=== PATIENT | female | born 1995 | race Caucasian/White ===

== ENCOUNTER 2023-02-24 07:17 | Inpatient (IN) ==
[2023-02-24] MEDS ORDERED: SODIUM CHLORIDE 0.9% 1,000 ML IV ONE ×3 (07:28→10:04)
--- NOTE | 2023-02-24 07:43 | Emergency Department Note ---
History of Present Illness General Chief complaint: Respiratory Problems Stated complaint: +COVID,29 WEEKS PREG,HARD TO BREATHE Time Seen by Provider: 02/24/23 07:25 History of Present Illness Maximum Pain Intensity: 7 27-year-old female who is 29 weeks presents to the emergency department for evaluation of COVID-positive with fever, chills, nausea, shortness of breath. Patient states around 1 PM yesterday she developed a sore throat and runny nose. When she got home from work she took a COVID test which was positive. She states as the night went on her symptoms got progressively worse when she developed fever/chills, nausea and shortness of breath with exertion. She notes feeling short of breath with talking and walking, not at rest. She did have an episode of chest pain across her ribs that lasted a few hours but this has since improved. She states around 6 AM this morning she started to get intermittent pain in her back and hips every few minutes and is concerned for having contractions. She states they occur every 3 minutes but do not last very long and have not gotten closer in frequency. She denies any vaginal bleeding or discharge. She is feeling the baby move. She denies any headaches, dizziness/lightheadedness, visual changes, abdominal pain, diarrhea/constipation, urinary symptoms. She reports that the thus far has been healthy without any complications. She was seen by her OB (Nandini) on Tuesday and was told she was anemic and will need iron transfusions as well as failed her glucose test. She denies any history of blood clots, or recent lower extremity swelling or calf pain. She took Tylenol last evening and Zofran on the way to the emergency department this morning for nausea. Denies any other significant past medical history. Home Medications Medication Instructions Recorded Confirmed Type cetirizine 10 mg tablet (Zyrtec) 10 mg PO QAM 01/07/23 02/24/23 History sertraline 50 mg tablet (Zoloft) 50 mg PO QAM 01/07/23 02/24/23 History ondansetron 4 mg disintegrating 4 mg translingual Q8H PRN 02/24/23 02/24/23 History tablet nausea/vomiting prenat.vits,zayda,cuz-izsl-dorea 1 tab PO DAILY 02/24/23 02/24/23 History Allergies Allergy/AdvReac Type Severity Reaction Status Date / Time No Known Allergies Allergy Unverified 01/07/23 16:04 Past Med/Surg History Medical History Depression COVID-19 Hypotension Tachycardia 29 weeks gestation of Social History Smoking Status: Never smoker Preferred Language: [place] Feels Safe at Home: Yes Physical Exam Vital Signs Vital Signs - 24 hr 02/24/23 07:18 02/24/23 07:18 02/24/23 07:22 Temperature 37.4 C Temperature Source Temporal Artery Scan Pulse Rate 167 H Pulse Rate [Apical] Pulse Rate from SpO2 Sensor Pulse Rhythm [Apical] Pulse Strength [Apical] Respiratory Rate 18 Respiratory Effort / Characteristics Spontaneous Non-Labored Spontaneous Respiratory Depth Normal Normal Respiratory Pattern Regular Blood Pressure 105/49 L Blood Pressure [Right Arm] Blood Pressure Mean 67 Blood Pressure Mean [Right Arm] Blood Pressure Position Sitting Blood Pressure Position [Right Arm] Pulse Oximetry 99 100 Oxygen Delivery Method Room Air Room Air Room Air Sepsis Recent Fever Within 48 Hours No Sepsis New/Unexplained Change in Mental Status No Sepsis Action Taken by Nursing No Action Required 02/24/23 07:35 02/24/23 07:35 02/24/23 07:35 Temperature Temperature Source Pulse Rate Pulse Rate [Apical] 154 H Pulse Rate from SpO2 Sensor Pulse Rhythm [Apical] Regular Pulse Strength [Apical] Normal Respiratory Rate 22 Respiratory Effort / Characteristics Non-Labored Spontaneous Respiratory Depth Normal Respiratory Pattern Regular Blood Pressure 109/73 Blood Pressure [Right Arm] 109/69 Blood Pressure Mean 80 Blood Pressure Mean [Right Arm] 82 Blood Pressure Position Blood Pressure Position [Right Arm] Sitting Pulse Oximetry 99 100 Oxygen Delivery Method Room Air Sepsis Recent Fever Within 48 Hours Sepsis New/Unexplained Change in Mental Status Sepsis Action Taken by Nursing 02/24/23 07:44 02/24/23 07:45 02/24/23 07:45 Temperature Temperature Source Pulse Rate 160 H Pulse Rate [Apical] 162 H Pulse Rate from SpO2 Sensor 160 H Pulse Rhythm [Apical] Regular Pulse Strength [Apical] Normal Respiratory Rate 22 23 Respiratory Effort / Characteristics Respiratory Depth Respiratory Pattern Blood Pressure Blood Pressure [Right Arm] 97/66 L Blood Pressure Mean Blood Pressure Mean [Right Arm] 76 Blood Pressure Position Blood Pressure Position [Right Arm] Sitting Pulse Oximetry 100 100 100 Oxygen Delivery Method Room Air Sepsis Recent Fever Within 48 Hours Sepsis New/Unexplained Change in Mental Status Sepsis Action Taken by Nursing 02/24/23 07:56 02/24/23 07:56 02/24/23 08:03 Temperature Temperature Source Pulse Rate 134 H Pulse Rate [Apical] Pulse Rate from SpO2 Sensor 132 H Pulse Rhythm [Apical] Pulse Strength [Apical] Respiratory Rate 26 H Respiratory Effort / Characteristics Respiratory Depth Respiratory Pattern Blood Pressure 106/59 L 99/67 L 100/63 Blood Pressure [Right Arm] Blood Pressure Mean 84 77 67 Blood Pressure Mean [Right Arm] Blood Pressure Position Blood Pressure Position [Right Arm] Pulse Oximetry 100 Oxygen Delivery Method Sepsis Recent Fever Within 48 Hours Sepsis New/Unexplained Change in Mental Status Sepsis Action Taken by Nursing 02/24/23 08:03 02/24/23 08:10 02/24/23 08:15 Temperature Temperature Source Pulse Rate 160 H 136 H Pulse Rate [Apical] 144 H Pulse Rate from SpO2 Sensor 157 H Pulse Rhythm [Apical] Regular Pulse Strength [Apical] Normal Respiratory Rate 20 22 Respiratory Effort / Characteristics Respiratory Depth Respiratory Pattern Blood Pressure Blood Pressure [Right Arm] 106/69 Blood Pressure Mean Blood Pressure Mean [Right Arm] 81 Blood Pressure Position Blood Pressure Position [Right Arm] Pulse Oximetry 99 100 Oxygen Delivery Method Room Air Sepsis Recent Fever Within 48 Hours Sepsis New/Unexplained Change in Mental Status Sepsis Action Taken by Nursing 02/24/23 08:15 02/24/23 08:30 02/24/23 08:30 Temperature Temperature Source Pulse Rate 134 H 136 H Pulse Rate [Apical] Pulse Rate from SpO2 Sensor 136 H 135 H Pulse Rhythm [Apical] Pulse Strength [Apical] Respiratory Rate 21 22 Respiratory Effort / Characteristics Respiratory Depth Respiratory Pattern Blood Pressure 95/48 L Blood Pressure [Right Arm] Blood Pressure Mean 71 Blood Pressure Mean [Right Arm] Blood Pressure Position Blood Pressure Position [Right Arm] Pulse Oximetry 98 99 Oxygen Delivery Method Sepsis Recent Fever Within 48 Hours Sepsis New/Unexplained Change in Mental Status Sepsis Action Taken by Nursing 02/24/23 08:37 02/24/23 08:37 02/24/23 08:45 Temperature Temperature Source Pulse Rate 140 H Pulse Rate [Apical] Pulse Rate from SpO2 Sensor 141 H Pulse Rhythm [Apical] Pulse Strength [Apical] Respiratory Rate 22 Respiratory Effort / Characteristics Respiratory Depth Respiratory Pattern Blood Pressure 97/52 L 101/50 L Blood Pressure [Right Arm] Blood Pressure Mean 61 61 Blood Pressure Mean [Right Arm] Blood Pressure Position Blood Pressure Position [Right Arm] Pulse Oximetry 99 Oxygen Delivery Method Sepsis Recent Fever Within 48 Hours Sepsis New/Unexplained Change in Mental Status Sepsis Action Taken by Nursing 02/24/23 08:45 02/24/23 09:00 02/24/23 09:00 Temperature Temperature Source Pulse Rate 135 H 132 H Pulse Rate [Apical] Pulse Rate from SpO2 Sensor 137 H 133 H Pulse Rhythm [Apical] Pulse Strength [Apical] Respiratory Rate 21 20 Respiratory Effort / Characteristics Respiratory Depth Respiratory Pattern Blood Pressure 96/54 L Blood Pressure [Right Arm] Blood Pressure Mean 77 Blood Pressure Mean [Right Arm] Blood Pressure Position Blood Pressure Position [Right Arm] Pulse Oximetry 97 97 Oxygen Delivery Method Sepsis Recent Fever Within 48 Hours Sepsis New/Unexplained Change in Mental Status Sepsis Action Taken by Nursing 02/24/23 09:15 02/24/23 09:15 02/24/23 09:28 Temperature Temperature Source Pulse Rate 131 H Pulse Rate [Apical] Pulse Rate from SpO2 Sensor 130 H Pulse Rhythm [Apical] Pulse Strength [Apical] Respiratory Rate 24 Respiratory Effort / Characteristics Respiratory Depth Respiratory Pattern Blood Pressure 83/65 L 91/53 L Blood Pressure [Right Arm] Blood Pressure Mean 70 71 Blood Pressure Mean [Right Arm] Blood Pressure Position Blood Pressure Position [Right Arm] Pulse Oximetry 97 Oxygen Delivery Method Sepsis Recent Fever Within 48 Hours Sepsis New/Unexplained Change in Mental Status Sepsis Action Taken by Nursing 02/24/23 09:28 02/24/23 09:30 02/24/23 09:30 Temperature Temperature Source Pulse Rate 134 H 132 H Pulse Rate [Apical] Pulse Rate from SpO2 Sensor 133 H 134 H Pulse Rhythm [Apical] Pulse Strength [Apical] Respiratory Rate 29 H 20 Respiratory Effort / Characteristics Respiratory Depth Respiratory Pattern Blood Pressure 85/48 L Blood Pressure [Right Arm] Blood Pressure Mean 59 Blood Pressure Mean [Right Arm] Blood Pressure Position Blood Pressure Position [Right Arm] Pulse Oximetry 97 95 Oxygen Delivery Method Sepsis Recent Fever Within 48 Hours Sepsis New/Unexplained Change in Mental Status Sepsis Action Taken by Nursing 02/24/23 09:45 02/24/23 09:45 02/24/23 10:00 Temperature Temperature Source Pulse Rate 133 H Pulse Rate [Apical] Pulse Rate from SpO2 Sensor 132 H Pulse Rhythm [Apical] Pulse Strength [Apical] Respiratory Rate 18 Respiratory Effort / Characteristics Respiratory Depth Respiratory Pattern Blood Pressure 90/45 L 86/50 L Blood Pressure [Right Arm] Blood Pressure Mean 61 63 Blood Pressure Mean [Right Arm] Blood Pressure Position Blood Pressure Position [Right Arm] Pulse Oximetry 98 Oxygen Delivery Method Sepsis Recent Fever Within 48 Hours Sepsis New/Unexplained Change in Mental Status Sepsis Action Taken by Nursing 02/24/23 10:00 02/24/23 10:11 02/24/23 10:11 Temperature Temperature Source Pulse Rate 123 H 125 H Pulse Rate [Apical] Pulse Rate from SpO2 Sensor 123 H 125 H Pulse Rhythm [Apical] Pulse Strength [Apical] Respiratory Rate 21 23 Respiratory Effort / Characteristics Respiratory Depth Respiratory Pattern Blood Pressure 99/59 L Blood Pressure [Right Arm] Blood Pressure Mean 68 Blood Pressure Mean [Right Arm] Blood Pressure Position Blood Pressure Position [Right Arm] Pulse Oximetry 97 98 Oxygen Delivery Method Sepsis Recent Fever Within 48 Hours Sepsis New/Unexplained Change in Mental Status Sepsis Action Taken by Nursing 02/24/23 10:15 02/24/23 10:15 02/24/23 10:30 Temperature Temperature Source Pulse Rate 113 H Pulse Rate [Apical] Pulse Rate from SpO2 Sensor 120 H Pulse Rhythm [Apical] Pulse Strength [Apical] Respiratory Rate 20 Respiratory Effort / Characteristics Respiratory Depth Respiratory Pattern Blood Pressure 95/69 L 95/52 L Blood Pressure [Right Arm] Blood Pressure Mean 76 69 Blood Pressure Mean [Right Arm] Blood Pressure Position Blood Pressure Position [Right Arm] Pulse Oximetry 97 Oxygen Delivery Method Sepsis Recent Fever Within 48 Hours Sepsis New/Unexplained Change in Mental Status Sepsis Action Taken by Nursing 02/24/23 10:30 02/24/23 10:45 02/24/23 10:45 Temperature Temperature Source Pulse Rate 125 H 127 H Pulse Rate [Apical] Pulse Rate from SpO2 Sensor 123 H 122 H Pulse Rhythm [Apical] Pulse Strength [Apical] Respiratory Rate 19 23 Respiratory Effort / Characteristics Respiratory Depth Respiratory Pattern Blood Pressure 93/51 L Blood Pressure [Right Arm] Blood Pressure Mean 63 Blood Pressure Mean [Right Arm] Blood Pressure Position Blood Pressure Position [Right Arm] Pulse Oximetry 100 98 Oxygen Delivery Method Sepsis Recent Fever Within 48 Hours Sepsis New/Unexplained Change in Mental Status Sepsis Action Taken by Nursing 02/24/23 11:00 02/24/23 11:00 02/24/23 12:02 Temperature Temperature Source Pulse Rate 117 H 132 H Pulse Rate [Apical] Pulse Rate from SpO2 Sensor 122 H Pulse Rhythm [Apical] Pulse Strength [Apical] Respiratory Rate 31 H 25 H Respiratory Effort / Characteristics Respiratory Depth Respiratory Pattern Blood Pressure 100/59 L 107/61 Blood Pressure [Right Arm] Blood Pressure Mean 70 76 Blood Pressure Mean [Right Arm] Blood Pressure Position Blood Pressure Position [Right Arm] Pulse Oximetry 100 100 Oxygen Delivery Method Room Air Sepsis Recent Fever Within 48 Hours Sepsis New/Unexplained Change in Mental Status Sepsis Action Taken by Nursing 02/24/23 12:15 02/24/23 12:45 02/24/23 12:53 Temperature Temperature Source Pulse Rate 120 H 144 H 131 H Pulse Rate [Apical] Pulse Rate from SpO2 Sensor 144 H Pulse Rhythm [Apical] Pulse Strength [Apical] Respiratory Rate 22 25 H Respiratory Effort / Characteristics Respiratory Depth Respiratory Pattern Blood Pressure 96/53 L 99/62 L Blood Pressure [Right Arm] Blood Pressure Mean 67 74 Blood Pressure Mean [Right Arm] Blood Pressure Position Blood Pressure Position [Right Arm] Pulse Oximetry 98 99 Oxygen Delivery Method Room Air Room Air Sepsis Recent Fever Within 48 Hours Sepsis New/Unexplained Change in Mental Status Sepsis Action Taken by Nursing 02/24/23 13:00 02/24/23 13:15 02/24/23 13:30 Temperature Temperature Source Pulse Rate 142 H 143 H 135 H Pulse Rate [Apical] Pulse Rate from SpO2 Sensor Pulse Rhythm [Apical] Pulse Strength [Apical] Respiratory Rate 28 H 24 29 H Respiratory Effort / Characteristics Respiratory Depth Respiratory Pattern Blood Pressure 99/58 L 101/55 L 106/76 Blood Pressure [Right Arm] Blood Pressure Mean 71 70 86 Blood Pressure Mean [Right Arm] Blood Pressure Position Blood Pressure Position [Right Arm] Pulse Oximetry 98 97 99 Oxygen Delivery Method Room Air Room Air Room Air Sepsis Recent Fever Within 48 Hours Sepsis New/Unexplained Change in Mental Status Sepsis Action Taken by Nursing 02/24/23 13:45 Temperature Temperature Source Pulse Rate 137 H Pulse Rate [Apical] Pulse Rate from SpO2 Sensor Pulse Rhythm [Apical] Pulse Strength [Apical] Respiratory Rate 27 H Respiratory Effort / Characteristics Respiratory Depth Respiratory Pattern Blood Pressure 105/63 Blood Pressure [Right Arm] Blood Pressure Mean 77 Blood Pressure Mean [Right Arm] Blood Pressure Position Blood Pressure Position [Right Arm] Pulse Oximetry 99 Oxygen Delivery Method Room Air Sepsis Recent Fever Within 48 Hours Sepsis New/Unexplained Change in Mental Status Sepsis Action Taken by Nursing Constitutional: alert and oriented x3. no acute distress. Dyspneic HEENT: normocephalic, atraumatic. normal conjunctiva.PERRLA. EOM's grossly intact. TMs pearly rivas without effusion. Oropharynx patent, erythematous. Tonsils nonenlarged without exudate. Mucus membranes moist Neck: neck is supple, nontender. Respiratory: lungs are clear to auscultation without wheezes, rhonchi, or rales bilaterally. equal chest rise. normal respiratory effort, no accessory muscle use. Cardiovascular: normal heart sounds without murmur. Tachycardic with regular rhythm GI: abdomen is soft, nontender. No palpable masses. No rebound tenderness or guarding. No CVA tenderness MSK: Moves all 4 extremities spontaneously Peripheral vascular: extremities warm and well perfused with palpable pulses. Neuro: without focal neuro deficits. CNII-XII intact. Speech clear, tongue midline, without facial droop. Strength equal throughout all for extremities. Psych:appropriate mood and affect. Course Course 0726: Patient was seen and evaluated in room A11. History and physical exam was performed and IV access was established and labs and imaging were obtained. She was placed on environmental monitoring technician at time my interpretation demonstrates sinus tachycardia at a rate of 150 bpm. Vital signs demonstrate mildly hypotensive at 105/49. Afebrile. Patient was hydrated with 2 L of IV fluids and medicated with Tylenol 0802: Discussed with emergency response technician Dr. Kerrie FERNANDEZ. Will be down to perform NST given concerns for contractions 0850: Upon reassessment, patient notes feeling moderately better. Vital signs stable, heart rate mildly improved. OB at bedside performing NST. Labs demonstrate no leukocytosis. Mild acute anemia hemoglobin of 10.9 (decreased from 12 on 01/07/2023). CMP without significant electrolyte abnormalities. Sodium 135. Potassium 3.3. Renal function within normal limits. LFTs and lipase unremarkable. High-sensitivity troponin nonactionable. EKG per my interpretation demonstrates sinus tachycardia at a rate of 153 bpm without evidence of ischemic changes. Urinalysis with +3 ketones, negative for infection or blood. CXR unremarkable. COVID/flu/RSV testing pending. 0930: NST within normal limits per OB. No evidence for contractions/labor. Patient continues to feel symptomatically better. She is persistently tachycardic and borderline hypotensive despite 2 L of fluids. Cannot entirely rule out PE with risk factors of and COVID +, however, lower on the differential at this time as her vital signs can be easily explained by a COVID infection. She does not appear septic. We discussed admission to the hospital for continued observation and hydration. Patient agreeable to plan. 0943: Discussed with hospitalist HUA, Nargis Grayson, who recommended additional liter of fluids, potassium repletion and lower extremity venous duplex prior to admission. These were ordered 1100: Patient remained stable. Heart rate further improved at 113bpm. No other concerns. Venous duplex pending 1207: Heart rate maintains in the 130s even after third liter of fluids. Venous duplex negative for ultrasound. Discussed with our hospitalist group who advised transfer to a tertiary center given patient is 29 weeks and if they were to need to deliver the baby for any reason we do not care for at that age. Patient informed of this recommendation and would like to go to [facility] 1240: Discussed case with [facility] CLIENT SERVICES COORDINATOR, Dr. Vega, and the hospitalist, Dr. Sebastian Trevino, in regards to transfer patient for further management. They reviewed patient's case and they currently do not have any beds and do not feel patient requires transfer to their facility at this time as patient is not currently in active labor. They are willing to accept if clinical status declines and indication arises 1320: Discussed with HUA Canales hospitalist and relayed recommendations from [facility] and are willing to accept patient for further observation and management at this time. Patient was admitted in stable condition Administered Medications Discontinued Medications Acetaminophen (Acetaminophen 500 Mg Tab) 500 mg PO Q4H PRN PRN Reason: Pain or Fever Stop: 03/26/23 17:42 Last Admin: 02/24/23 18:10 Dose: 500 mg Documented By: CC Cetirizine HCl (Cetirizine Hcl 10 Mg Tablet) 10 mg PO NOW ONE Stop: 02/24/23 12:12 Last Admin: 02/24/23 12:51 Dose: 10 mg Documented By: SRINI Sodium Chloride (Nss) 1,000 mls @ 999 mls/hr IV .Q1H1M ONE Stop: 02/24/23 08:28 Last Infusion: 02/24/23 10:57 Dose: Infused Documented By: Admin: 02/24/23 07:38 Dose: 999 mls/hr Documented By: TOMY Acetaminophen (Ofirmev) 1,000 mg in 100 mls @ 400 mls/hr IV NOW STA Stop: 02/24/23 08:05 Last Infusion: 02/24/23 08:26 Dose: Infused Documented By: Admin: 02/24/23 08:15 Dose: 400 mls/hr Documented By: EZRA Sodium Chloride (Nss) 1,000 mls @ 999 mls/hr IV .Q1H1M ONE Stop: 02/24/23 09:06 Last Infusion: 02/24/23 10:57 Dose: Infused Documented By: Admin: 02/24/23 08:51 Dose: 999 mls/hr Documented By: EZRA Sodium Chloride (Nss) 1,000 mls @ 999 mls/hr IV .Q1H1M ONE Stop: 02/24/23 11:04 Last Infusion: 02/24/23 11:57 Dose: Infused Documented By: Admin: 02/24/23 10:34 Dose: 999 mls/hr Documented By: EZRA Sodium Chloride (Nss) 1,000 mls @ 100 mls/hr IV .Q10H MC Stop: 02/25/23 09:29 Last Admin: 02/24/23 14:01 Dose: 100 mls/hr Documented By: SRINI Ioversol (Optiray 320 125ml) 118 ml IV ONCE ONE Stop: 02/24/23 18:24 Last Admin: 02/24/23 18:27 Dose: 118 ml Documented By: KALYANI Potassium Chloride (Potassium Chloride Crtab 20 Meq Tabcr) 20 meq PO NOW STA Stop: 02/24/23 10:05 Last Admin: 02/24/23 10:33 Dose: 20 meq Documented By: EZRA Potassium Chloride (Potassium Chloride Crtab 20 Meq Tabcr) 40 meq PO NOW STA Stop: 02/24/23 14:29 Last Admin: 02/24/23 16:38 Dose: 40 meq Documented By: SRINI Sertraline HCl (Sertraline Hcl 50 Mg Tablet) 50 mg PO NOW ONE Stop: 02/24/23 12:12 Last Admin: 02/24/23 12:51 Dose: 50 mg Documented By: SRINI Medical Decision Making Differential Diagnosis COVID, viral URI, pneumonia, pneumothorax, PE, ACS, myocarditis, labor, preeclampsia, dehydration, electrolyte abnormalities, as well as other pathologies Laboratory Data Attestation: I reviewed the patient's lab results. 02/24/23 07:36 02/24/23 07:36 Lab Results 02/24/23 Range/Units 07:36 WBC 7.01 (4.8-10.8) K/ul RBC 3.74 L (4.20-5.40) M/uL Hgb 10.9 L (12.0-16.0) g/dl Hct 31.5 L (37.0-47.0) % MCV 84.2 (80.0-100.0) fL MCH 29.1 (25.0-34.0) pg MCHC 34.6 (32.0-36.0) g/dL RDW Std Deviation 40.5 (36.4-46.3) fL RDW Coeff of Marito 13.2 (11.5-14.5) % Plt Count 207 (130-400) K/uL MPV 11.0 (9.4-12.4) fL Immature Gran % (Auto) 1.1 % Neut % (Auto) 85.8 % Lymph % (Auto) 4.1 % Bledsoe % (Auto) 8.8 % Eos % (Auto) 0.1 % Baso % (Auto) 0.1 % Neut # (Auto) 6.00 (1.40-6.50) K/uL Lymph # (Auto) 0.29 L (1.20-3.40) K/uL Bledsoe # (Auto) 0.62 H (0.11-0.59) K/uL Eos # (Auto) 0.01 (0.00-0.50) K/uL Baso # (Auto) 0.01 (0.00-0.20) K/uL Immature Gran # (Auto) 0.08 (0.01-0.20) K/uL Sodium 135 L (136-145) mmol/L Potassium 3.3 L (3.5-5.1) mmol/L Chloride 106 (98-107) mmol/L Carbon Dioxide 19 L (21-32) mmol/L Anion Gap 10 (3-11) BUN 6 (6-23) mg/dl Creatinine 0.60 (0.6-1.2) mg/dl Est Cr Clr Drug Dosing 149.1 ml/min Est GFR ( Amer) 145.8 ml/min Est GFR (Non-Af Amer) 125.8 ml/min BUN/Creatinine Ratio 10.0 (10-20) Glucose 105 H (70-99(Fasting)) mg/dl Calcium 8.9 (8.6-10.3) mg/dl Magnesium 1.5 L (1.7-2.4) mg/dl Total Bilirubin 0.5 (0.2-1.0) mg/dl AST 22 (13-39) U/L ALT 16 (7-52) U/L Alkaline Phosphatase 88 (34-104) U/L Troponin I High Sens 5.6 (0-14) pg/ml Total Protein 6.5 (6.0-8.3) gm/dl Albumin 3.8 (3.4-5.0) gm/dl Globulin 2.7 (2.5-4.0) gm/dl Albumin/Globulin Ratio 1.4 (0.9-2) Lipase 15 (11-82) U/L TSH 0.769 (0.300-4.500) uIu/ml Imaging Data Radiologist's Impression: Chest X-Ray 02/24/23 07:28 XR chest 1V portable HISTORY: 27 years-old Female SOB acute shortness of breath COMPARISON: None TECHNIQUE: AP view of the chest FINDINGS: Cardiomediastinal and hilar silhouettes are within normal limits. No pneumothorax, pleural effusion or airspace consolidation. The bones appear normal. IMPRESSION: No acute process. ACT 112: Negative or not required by law. The above report was generated using voice recognition software. It may contain grammatical, syntax or spelling errors. Electronically signed by: Moises Toth M.D. 02/24/2023 9:01 AM Venous Doppler Study 02/24/23 10:04 US venous doppler LE BI CLINICAL HISTORY: r/o DVT TECHNIQUE: Bilateral lower extremity real-time compression venous ultrasound with Color Doppler imaging. Utilizing real-time ultrasonic imaging multiple real time high-resolution ultrasonic images with compression and noncompression maneuvers of the deep venous system in addition to color doppler imaging were performed from the common femoral vein through the proximal calf veins. COMPARISON: None available at the time of this dictation. FINDINGS/IMPRESSION: Currently there is normal compressibility of the deep venous system from the common femoral vein through the proximal calf veins. No superficial venous thrombosis is identified. ACT 112: Negative or not required by law. Electronically signed by: Jonas Oakley M.D. 02/24/2023 12:09 PM MDM Narrative 27-year-old female who is 29 weeks presents to the emergency department for evaluation of COVID+ with fever/chills, dyspnea on exertion, low back pain. Review pertinent visits and past medical history performed. Vital signs in ED demonstrate borderline hypotensive and tachycardic in the 160s. Patient was seen and evaluated as above, please see course section for details of today's visit. Workup today remarkable for COVID infection. Labs relatively unremarkable. No leukocytosis. Mild anemia. No significant electrolyte abnormalities. Urinalysis positive for ketones, negative for blood or infection. CXR unremarkable. She was medicated with a total of 3 L of fluids and Tylenol. Patient was reassessed on multiple occasions throughout ED stay. She remained stable without new concerns. She is persistently tachycardic and borderline hypotensive despite hydration. Case was discussed with [facility] CLIENT SERVICES COORDINATOR who came to perform bedside NST which was within normal limits. I suspect patient's symptoms are likely secondary to COVID infection. Cannot entirely rule out PE although LE venous duplex were negative for acute DVTs and she has no history of such. No chest pain and her shortness of breath has resolved. She is not in any acute respiratory distress and has maintained normal O2 saturations on room air throughout ED stay. She is afebrile. We discussed admission to the hospital for further observation and management and patient was agreeable. CTA of the chest/VQ scan was deferred at this time as her symptoms can be explained by her COVID infection. I discussed case with [facility] hospitalist who initially was concerned for potential decline in regards to baby and recommended transfer to a tertiary center that had a NICU in case of needing to deliver. I discussed with Nandini Rodriguez who did not feel patient met criteria for transfer at this time as patient is stable and not in active labor. Patient was therefore admitted to our hospitalist service for further management. She was admitted in stable condition. Case was discussed with ED attending, Dr. Cobos, who agrees with workup and treatment plan Impression & Plan COVID-19, 29 weeks gestation of , Tachycardia, Hypotension Discharge Plan Visit Data Chief Complaint: Respiratory Problems Stated Complaint: +COVID,29 WEEKS PREG,HARD TO BREATHE ED Provider: Iain Cobos ED Midlevel Provider: Sarai Deutsch Discharge Problem: COVID-19, 29 weeks gestation of , Tachycardia, Hypotension Patient Disposition: Admitted As Inpatient Discharge Instructions Interventions: ED Discharge Assessment Last Done: 02/24/23 20:11
[2023-02-24] MEDS ORDERED: ACETAMINOPHEN 1,000 MG/100 ML VIAL IV STA (07:51)
[2023-02-24 07:56] LABS: Basophils # (auto) 0.01 K/uL (0.00-0.20); Basophils % (auto) 0.1 %; Eosinophils # (auto) 0.01 K/uL (0.00-0.50); Eosinophils % (auto) 0.1 %; Hematocrit (blood only) 31.5 % (37.0-47.0); Hemoglobin 10.9 g/dl (12.0-16.0); Immature Granulocytes # (auto) 0.08 K/uL (0.01-0.20); Immature Granulocytes % (auto) 1.1 %; Lymphocytes # (auto) 0.29 K/uL (1.20-3.40); Lymphocytes % (auto) 4.1 %; Mean Corpuscular Hemoglobin 29.1 pg (25.0-34.0); Mean Corpuscular Hgb Conc 34.6 g/dL (32.0-36.0); Mean Corpuscular Volume 84.2 fL (80.0-100.0); Monocytes # (auto) 0.62 K/uL (0.11-0.59); Monocytes % (auto) 8.8 %; Neutrophils % (auto) 85.8 %; Platelet Count 207 K/uL (130-400); RDW Coefficient of Variation 13.2 % (11.5-14.5); RDW Standard Deviation 40.5 fL (36.4-46.3); Red Blood Count 3.74 M/uL (4.20-5.40); White Blood Count 7.01 K/ul (4.8-10.8)
[2023-02-24 08:14] LABS: Appearance Urine Clear (Clear); Bilirubin Urine Negative (Negative); Blood Urine Negative (Negative); Color Urine Yellow; Glucose Urine UA Negative (Negative); Ketones Urine 3+ (Negative); Leukocyte Esterase Urine Negative (Negative); Nitrite Urine Negative (Negative); Protein Urine Negative (Negative); Specific Gravity Urine 1.023 (1.000-1.030); Urobilinogen Urine Negative (Negative)
[2023-02-24 08:15] LABS: Albumin Globulin Ratio 1.4 (0.9-2); Albumin Level 3.8 gm/dl (3.4-5.0); Bilirubin,Total 0.5 mg/dl (0.2-1.0); Calcium 8.9 mg/dl (8.6-10.3); Creatinine Clr Calc Pharmacy 149.1 ml/min; Est GFR (African American) 145.8 ml/min; Est GFR (Non-African American) 125.8 ml/min; Globulin 2.7 gm/dl (2.5-4.0); Potassium 3.3 mmol/L (3.5-5.1); Total Protein 6.5 gm/dl (6.0-8.3)
[2023-02-24 08:21] LABS: Troponin I High Sensitivity 5.6 pg/ml (0-14)
[2023-02-24 08:58] LABS: Influenza A virus by PCR Negative (Neg); Influenza B virus by PCR Negative (Neg); RSV by PCR Negative (Neg)
--- NOTE | 2023-02-24 09:03 | XRay Report ---
XR chest 1V portable HISTORY: 27 years-old Female SOB acute shortness of breath COMPARISON: None TECHNIQUE: AP view of the chest FINDINGS: Cardiomediastinal and hilar silhouettes are within normal limits. No pneumothorax, pleural effusion o r airspace consolidation. The bones appear normal. IMPRESSION: No acute process. ACT 112: Negative or not required by law. The above report was generated using voice recognition software. It may contain grammatical, syntax o r spelling errors. Electronically signed by: Moises Toth M.D. 02/24/2023 9:01 AM
[2023-02-24 09:43] LABS: SARS CoV2 RNA(COVID-19) Ceph POSITIVE (Negative)
[2023-02-24] MEDS ORDERED: POTASSIUM CHLORIDE CRTAB 20 MEQ TABCR PO STA ×2 (10:04→14:28)
--- NOTE | 2023-02-24 12:10 | Ultrasound Report ---
US venous doppler LE BI CLINICAL HISTORY: r/o DVT TECHNIQUE: Bilateral lower extremity real-time compression venous ultrasound with Color Doppler imagi ng. Utilizing real-time ultrasonic imaging multiple real time high-resolution ultrasonic images with compression and noncompression maneuvers of the deep venous system in addition to color doppler imagi ng were performed from the common femoral vein through the proximal calf veins. COMPARISON: None available at the time of this dictation. FINDINGS/IMPRESSION: Currently there is normal compressibility of the deep venous system from the common femoral vein thro ugh the proximal calf veins. No superficial venous thrombosis is identified. ACT 112: Negative or not required by law. Electronically signed by: Jonas Oakley M.D. 02/24/2023 12:09 PM
[2023-02-24] MEDS ORDERED: SERTRALINE HCL 50 MG TABLET PO ONE (12:11)
[2023-02-24] MEDS ORDERED: CETIRIZINE HCL 10 MG TABLET PO ONE (12:11)
[2023-02-24] MEDS ORDERED: SODIUM CHLORIDE 0.9% 1,000 ML IV SCH (13:30)
--- NOTE | 2023-02-24 13:42 | History & Physical Report ---
Date of Service February 24, 2023 Assessment & Plan (1) Tachycardia: (2) Hypotension: (3) 29 weeks gestation of : (4) COVID-19: (5) Depression: Plan Ms. Grimes is a 27 year old female that presents to the ED with heart palpitations and persistent tachycardia that began today. OB was consulted in the ED and NST was performed at bedside and within normal limits per OB Dr. Faulkner. No active evidence for active labor. Patient with persistent tachycardia and borderline hypotensive despite 3 L of fluid resuscitation. Concern for PE with risk factors including COVID-positive and . Risk versus benefit of imaging discussed. Lower extremity ultrasound Doppler performed and negative for DVT. Heart rate continues to be tachycardic after third liter of fluid. Discussion held between ER provider and hospitalist regarding transfer to receive an upgrade in care where telephone sex worker would be present. Given that she is 29 weeks and as we do not have capability for care for level of gestation. ED discussed with Nandini Rodriguez DEER FARMER Dr. Villalba and the hospitalist Dr. Sebastian Trevino with regards to possible transfer for further management. Dr. Trevino indicated that they would accept from hospitalist perspective however there were no beds available at this time and suspect that it would be around 24 hours prior to bed availability; discussed internally with Dr. Ramirez and patient will be excepted under our service until bed becomes available at [facility] [place] as necessary. In the meantime continue normal saline at 100 mL/h, TEDS/SCDS, CBC and BMP in a.m., ECG in a.m. Tachycardia: Hypotension: Dehydration Initial HR 160's ST on ECG, no ectopy 3 LNSB administered in ED continue IV fluids at 100ml/hour BP soft 98/60--> 107/52 LE Doppler US performed and negative for DVT; consider VQ scan if persistent symptoms Check ECHO Given persistent tachycardia, in setting of , COVID infection, may need to consider CTA to rule out PE after discussing risks versus benefits if tachycardia remains persistent Replace electrolytes as needed Consider cardiology evaluation if needed 29 weeks gestation of : Dr. Sy consulted with OB NST done at bedside; within normal limits per OB OB consult for oversight and repeat NST if necessary. ED discussed with Nandini Rodriguez DEER FARMER Dr. Villalba and the hospitalist Dr. Sebastian Trevino with regards to possible transfer for further management. Dr. Trevino indicated that they would accept from hospitalist perspective however there were no beds available at this time. Suspect that it would be around 24 hours prior to bed availability. Discussed internally with Dr. Ramirez and patient will be excepted under our service until bed becomes available at [facility] [place] as necessary. COVID-19: Acute uncontrolled no current treatment to be administered due to Saturating well on room air No pneumonia on chest x-ray Conservative management for now Hyponatremia Hypochloremia Hypokalemia Hypomagnesemia Likely due to dehydration, poor oral intake Sodium 135 Potassium 3.3 Magnesium 1.5 Replace potassium and monitor electrolytes Depression: Chronic stable Takes Zoloft; continue Disposition: PCP: Dr. Mead CODE STATUS: Full code VTE prophylaxis: Teds and SCDs for now Given high risk , plan to discussed with [facility] for possible transfer to tertiary care facility. I spent a total of 87 minutes coordinating, documenting, and providing care for this patient excluding time spent in the performance of separately billed services. All of the aforementioned completed while collaborating with the assigned attending physician for a full treatment plan. Please see their addendum for further details. History of Present Illness Chief Complaint: tachycardia Primary Care Provider: Ciera Mead DO Ms. Grimes is a 27 year old female that presents to the ED with heart palpitations and persistent tachycardia that began today. Patient noticed to develop sore throat associated with fever, chills, generalized weakness, difficulty to ambulate secondary to weakness, intermittent dry cough since yesterday. She admits to notice fever 102.9 last night. She has been very nauseous but denies any vomiting. Poor oral intake secondary to nausea. Also reports some shortness of breath associated with chest tightness. She had persistent palpitations. Also reports left lower quadrant abdominal tightness but unsure if she is having contractions. She reports that her and her coworkers had flulike symptoms as well. OB was consulted in the ED and NST was performed at bedside and within normal limits per OB Dr. Faulkner. No active evidence for active labor. Patient with persistent tachycardia and borderline hypotensive despite 3 L of fluid resuscitation. Concern for PE with risk factors including COVID-positive and . Risk versus benefit of imaging discussed. Lower extremity ultrasound Doppler performed and negative for DVT. Heart rate continues to be tachycardic after third liter of fluid. Discussion held between ER provider and hospitalist regarding transfer to receive an upgrade in care where telephone sex worker would be present. Given that she is 29 weeks and as we do not have capability for care for level of gestation. ED discussed with Nandini Rodriguez DEER FARMER Dr. Vega and the hospitalist Dr. Sebastian Trevino with regards to possible transfer for further management. Dr. Trevino indicated that they would accept from hospitalist perspective however there were no beds available at this time and suspect that it would be around 24 hours prior to bed availability; discussed internally with Dr. Ramirez and patient will be excepted under our service until bed becomes available at [facility] [place] as necessary. In the meantime continue normal saline at 100 mL/h, TEDS/SCDS, CBC and BMP in a.m., ECG in a.m. Patient will be admitted for further evaluation and management. Please see A/P for further details. Allergies Allergy/AdvReac Type Severity Reaction Status Date / Time No Known Allergies Allergy Unverified 01/07/23 16:04 Home Medications Medication Instructions Recorded Confirmed Type cetirizine 10 mg tablet (Zyrtec) 10 mg PO QAM 01/07/23 02/24/23 History sertraline 50 mg tablet (Zoloft) 50 mg PO QAM 01/07/23 02/24/23 History ondansetron 4 mg disintegrating 4 mg translingual Q8H PRN 02/24/23 02/24/23 History tablet nausea/vomiting prenat.vits,zayda,aeo-pllq-fhaih 1 tab PO DAILY 02/24/23 02/24/23 History Past Med/Surg History Medical History Depression COVID-19 Hypotension Tachycardia 29 weeks gestation of Social History Smoking Status: Never smoker Preferred Language: Mosotho Feels Safe at Home: Yes Review of Systems Review of Systems: Neuro: (-) Falls, trauma, slurred speech HEENT: (-) WARD, dizziness, dysphagia, visual or auditory changes CV: (-) CP, palpitations, swelling Resp: (-) SOB GI: (-) appetite changes, N/V/D, bowel changes : (-) urinary changes Skin: (-) rashes Psych: (-) anxiety, depression Physical Exam Physical Exam: Physical Exam: Vitals signs as noted above General Appearance:Moderately built and nourished, no apparent distress Head: normocephalic, Atraumatic Eyes: normal inspection, EOMI Neck: supple, Trachea midline Respiratory/Chest: Normal breath sounds, CTA, No accessory muscle use Cardiovascular: S1, S2, No murmur, +Sinus Tachycardia Abdomen/GI:Soft, Non tender, Bowel sounds present, +Distended, + Extremities/Musculoskeletal:normal inspection, no edema Neurologic/Psych:AAOX3, grossly no focal neurological deficits Skin: normal color, warm Results & Data Results & Data Vital Signs (Past 12 Hours) Vital Signs Temp Pulse Pulse Resp BP BP Pulse Ox 02/24/23 12:53 131 H 02/24/23 12:02 132 H 25 H 107/61 100 02/24/23 11:00 117 H 31 H 100 02/24/23 11:00 100/59 L 02/24/23 10:45 127 H 23 98 02/24/23 10:45 93/51 L 02/24/23 10:30 125 H 19 100 02/24/23 10:30 95/52 L 02/24/23 10:15 95/69 L 02/24/23 10:15 113 H 20 97 02/24/23 10:11 125 H 23 98 02/24/23 10:11 99/59 L 02/24/23 10:00 123 H 21 97 02/24/23 10:00 86/50 L 02/24/23 09:45 133 H 18 98 02/24/23 09:45 90/45 L 02/24/23 09:30 132 H 20 95 02/24/23 09:30 85/48 L 02/24/23 09:28 134 H 29 H 97 02/24/23 09:28 91/53 L 02/24/23 09:15 83/65 L 02/24/23 09:15 131 H 24 97 02/24/23 09:00 132 H 20 97 02/24/23 09:00 96/54 L 02/24/23 08:45 135 H 21 97 02/24/23 08:45 101/50 L 02/24/23 08:37 140 H 22 99 02/24/23 08:37 97/52 L 02/24/23 08:30 136 H 22 99 02/24/23 08:30 95/48 L 02/24/23 08:15 134 H 21 98 02/24/23 08:15 136 H 02/24/23 08:10 144 H 22 106/69 100 02/24/23 08:03 160 H 20 99 02/24/23 08:03 100/63 02/24/23 07:56 134 H 26 H 99/67 L 100 02/24/23 07:56 106/59 L 02/24/23 07:45 160 H 23 100 02/24/23 07:45 162 H 22 97/66 L 100 02/24/23 07:44 100 02/24/23 07:35 100 02/24/23 07:35 109/73 02/24/23 07:35 154 H 22 109/69 99 02/24/23 07:22 37.4 C 167 H 18 105/49 L 100 02/24/23 07:18 99 02/24/23 07:18 O2 Del Method 02/24/23 12:53 02/24/23 12:02 Room Air 02/24/23 11:00 02/24/23 11:00 02/24/23 10:45 02/24/23 10:45 02/24/23 10:30 02/24/23 10:30 02/24/23 10:15 02/24/23 10:15 02/24/23 10:11 02/24/23 10:11 02/24/23 10:00 02/24/23 10:00 02/24/23 09:45 02/24/23 09:45 02/24/23 09:30 02/24/23 09:30 02/24/23 09:28 02/24/23 09:28 02/24/23 09:15 02/24/23 09:15 02/24/23 09:00 02/24/23 09:00 02/24/23 08:45 02/24/23 08:45 02/24/23 08:37 02/24/23 08:37 02/24/23 08:30 02/24/23 08:30 02/24/23 08:15 02/24/23 08:15 02/24/23 08:10 Room Air 02/24/23 08:03 02/24/23 08:03 02/24/23 07:56 02/24/23 07:56 02/24/23 07:45 02/24/23 07:45 Room Air 02/24/23 07:44 02/24/23 07:35 02/24/23 07:35 02/24/23 07:35 Room Air 02/24/23 07:22 Room Air 02/24/23 07:18 Room Air 02/24/23 07:18 Room Air Laboratory Results Short CBC 02/24/23 Range/Units 07:36 WBC 7.01 (4.8-10.8) K/ul Hgb 10.9 L (12.0-16.0) g/dl Hct 31.5 L (37.0-47.0) % Plt Count 207 (130-400) K/uL BMP 02/24/23 07:36 Sodium 135 L Potassium 3.3 L Chloride 106 Carbon Dioxide 19 L BUN 6 Creatinine 0.60 Glucose 105 H Calcium 8.9 Liver Function 02/24/23 Range/Units 07:36 Total Bilirubin 0.5 (0.2-1.0) mg/dl AST 22 (13-39) U/L ALT 16 (7-52) U/L Alkaline Phosphatase 88 (34-104) U/L Albumin 3.8 (3.4-5.0) gm/dl Urine 02/24/23 Range/Units Unknown Urine Color Yellow Urine Appearance Clear (Clear) Urine pH 5.0 (4.5-7.5) Ur Specific Mobile 1.023 (1.000-1.030) Urine Protein Negative (Negative) Urine Glucose (UA) Negative (Negative) Diagnostic Findings Chest X-Ray 02/24/23 07:28 XR chest 1V portable HISTORY: 27 years-old Female SOB acute shortness of breath COMPARISON: None TECHNIQUE: AP view of the chest FINDINGS: Cardiomediastinal and hilar silhouettes are within normal limits. No pneumot horax, pleural effusion or airspace consolidation. The bones appear normal. IMPRESSION: No acute process. ACT 112: Negative or not required by law. The above report was generated using voice recognition software. It may contain grammatical, syntax or spelling errors. Electronically signed by: Moises Toth M.D. 02/24/2023 9:01 AM Venous Doppler Study 02/24/23 10:04 US venous doppler LE BI CLINICAL HISTORY: r/o DVT TECHNIQUE: Bilateral lower extremity real-time compression venous ultrasound with Color Doppler imaging. Utilizing real-time ultrasonic imaging multiple real time high-resolution ultrasonic images with compression and noncompression maneuvers of the deep venous system in addition to color doppler imaging were performed from the common femoral vein through the proximal calf veins. COMPARISON: None available at the time of this dictation. FINDINGS/IMPRESSION: Currently there is normal compressibility of the deep venous system from the common femoral vein through the proximal calf veins. No superficial venous thrombosis is identified. ACT 112: Negative or not required by law. Electronically signed by: Jonas Oakley M.D. 02/24/2023 12:09 PM Code Status & VTE Plan Code Status Full code in the event of cardiac or respiratory arrest VTE Prophylaxis Plan VTE Prophylaxis will be ordered: Yes Supervising Physician Co-Signing Physician Notes I have edited the above note as needed including physical exam, HPI and assessment and plan. I personally reviewed the record. Patient is interviewed and examined at bedside. Patient's care is coordinated with Nargis SEQUEIRA. Please refer to the documentation above for details of patient's presentation and for discussion of other issues.
--- NOTE | 2023-02-24 14:10 | Electrocardiogram Report ---
Test Reason : Blood Pressure : / mmHG Vent. Rate : 153 BPM Atrial Rate : 153 BPM P-R Int : 100 ms QRS Dur : 070 ms QT Int : 266 ms P-R-T Axes : 037 031 017 degrees QTc Int : 424 ms Sinus tachycardia Nonspecific T wave abnormality Abnormal ECG No previous ECGs available Confirmed by Woody Rodriguez ([id number]) on 02/24/2023 2:09:42 PM Referred By: REFERRED SELF Confirmed By:Dangelo Rodriguez
[2023-02-24] MEDS ORDERED: SODIUM CHLORIDE 0.65% NA SOLN 45 ML (OCEAN) PRN (14:48)
[2023-02-24] MEDS ORDERED: ACETAMINOPHEN 500 MG TAB PO PRN (17:43)
--- NOTE | 2023-02-24 17:47 | Communication Note ---
Date of Service: February 24, 2023 Discussed risks versus benefits of obtaining CT for ruling out PE with patient in detail given persistent tachycardia. ECHO results updated as well. Patient agrees to obtain CTA for further evaluation.
--- NOTE | 2023-02-24 18:04 | Communication Note ---
Date of Service: February 24, 2023 Patient continues to have tachycardia in the 140's with BP ranging 98/60 to 104/54. Discussed with OB Dr. Sy who supported chest CTA with low risk to affecting . Further discussion with patient by Dr. Ramirez who discussed risk vs benefit of Chest CTA. Pt agreeable to diagnostic testing. Furthermore, [facility] returned call and provided with accepting physician of Dr. Anand Montano. Should systolic BP remain low, consider life flight for transportation. Currently plan for [facility] ground transportation. Will await Chest CT results. internal controls manager and transfer center aware. Patient room # will be 642 at [place]. [place] [facility] to take patient pending mushroom picker [place] [phone]. Dr[address] Ramirez completed transfer paperwork.
--- NOTE | 2023-02-24 18:18 | Discharge Summary ---
Date of Service February 24, 2023 Admission HPI Per Admitting Provider Ms. Grimes is a 27 year old female that presents to the ED with heart palpitations and persistent tachycardia that began today. Patient noticed to develop sore throat associated with fever, chills, generalized weakness, difficulty to ambulate secondary to weakness, intermittent dry cough since yesterday. She admits to notice fever 102.9 last night. She has been very nauseous but denies any vomiting. Poor oral intake secondary to nausea. Also reports some shortness of breath associated with chest tightness. She had persistent palpitations. Also reports left lower quadrant abdominal tightness but unsure if she is having contractions. She reports that her and her coworkers had flulike symptoms as well. OB was consulted in the ED and NST was performed at bedside and within normal limits per OB Dr. Faulkner. No active evidence for active labor. Patient with persistent tachycardia and borderline hypotensive despite 3 L of fluid resuscitation. Concern for PE with risk factors including COVID-positive and . Risk versus benefit of imaging discussed. Lower extremity ultrasound Doppler performed and negative for DVT. Heart rate continues to be tachycardic after third liter of fluid. Discussion held between ER provider and hospitalist regarding transfer to receive an upgrade in care where high school librarian would be present. Given that she is 29 weeks and as we do not have capability for care for level of gestation. ED discussed with Nandini Rodriguez RETAIL LOAN ORIGINATOR Dr. Vega and the hospitalist Dr. Sebastian Trevino with regards to possible transfer for further management. Dr. Trevino indicated that they would accept from hospitalist perspective however there were no beds available at this time and suspect that it would be around 24 hours prior to bed availability; discussed internally with Dr. Ramirez and patient will be excepted under our service [place] [facility] [place]. In the meantime continue normal saline at 100 mL/h, TEDS/SCDS, CBC and BMP in a.m., ECG in a.m. Patient will be admitted for further evaluation and management. Please see A/P for further details. Admission Exam Per Admitting Provider Physical Exam: Vitals signs as noted above General Appearance:Moderately built and nourished, no apparent distress Head: normocephalic, Atraumatic Eyes: normal inspection, EOMI Neck: supple, Trachea midline Respiratory/Chest: Normal breath sounds, CTA, No accessory muscle use Cardiovascular: S1, S2, No murmur, +Sinus Tachycardia Abdomen/GI:Soft, Non tender, Bowel sounds present, +Distended, + Extremities/Musculoskeletal:normal inspection, no edema Neurologic/Psych:AAOX3, grossly no focal neurological deficits Skin: normal color, warm Principal Diagnosis COVID-19 infection 29 weeks gestation of Dehydration Suspected PE Hyponatremia Hypokalemia Hypokalemia Hypomagnesemia Discharge Data Allergies Allergy/AdvReac Type Severity Reaction Status Date / Time No Known Allergies Allergy Unverified 01/07/23 16:04 Consultations 02/24/23 10:00 ED Decision to Admit Stat 02/24/23 13:29 Consult Obstetrics Routine Procedures Performed Laboratory Results WBC 7.01 K/ul (4.8-10.8) 02/24/23 07:36 RBC 3.74 M/uL (4.20-5.40) L 02/24/23 07:36 Hgb 10.9 g/dl (12.0-16.0) L 02/24/23 07:36 Hct 31.5 % (37.0-47.0) L 02/24/23 07:36 MCV 84.2 fL (80.0-100.0) 02/24/23 07:36 MCH 29.1 pg (25.0-34.0) 02/24/23 07:36 MCHC 34.6 g/dL (32.0-36.0) 02/24/23 07:36 RDW Std Deviation 40.5 fL (36.4-46.3) 02/24/23 07:36 RDW Coeff of Marito 13.2 % (11.5-14.5) 02/24/23 07:36 Plt Count 207 K/uL (130-400) 02/24/23 07:36 MPV 11.0 fL (9.4-12.4) 02/24/23 07:36 Immature Gran % (Auto) 1.1 % 02/24/23 07:36 Neut % (Auto) 85.8 % 02/24/23 07:36 Lymph % (Auto) 4.1 % 02/24/23 07:36 [place] % (Auto) 8.8 % 02/24/23 07:36 Eos % (Auto) 0.1 % 02/24/23 07:36 Baso % (Auto) 0.1 % 02/24/23 07:36 Neut # (Auto) 6.00 K/uL (1.40-6.50) 02/24/23 07:36 Lymph # (Auto) 0.29 K/uL (1.20-3.40) L 02/24/23 07:36 [place] # (Auto) 0.62 K/uL (0.11-0.59) H 02/24/23 07:36 Eos # (Auto) 0.01 K/uL (0.00-0.50) 02/24/23 07:36 Baso # (Auto) 0.01 K/uL (0.00-0.20) 02/24/23 07:36 Immature Gran # (Auto) 0.08 K/uL (0.01-0.20) 02/24/23 07:36 Sodium 135 mmol/L (136-145) L 02/24/23 07:36 Potassium 3.3 mmol/L (3.5-5.1) L 02/24/23 07:36 Chloride 106 mmol/L (98-107) 02/24/23 07:36 Carbon Dioxide 19 mmol/L (21-32) L 02/24/23 07:36 Anion Gap 10 (3-11) 02/24/23 07:36 BUN 6 mg/dl (6-23) 02/24/23 07:36 Creatinine 0.60 mg/dl (0.6-1.2) 02/24/23 07:36 Est Cr Clr Drug Dosing 149.1 ml/min 02/24/23 07:36 Est GFR ( Amer) 145.8 ml/min 02/24/23 07:36 Est GFR (Non-Af Amer) 125.8 ml/min 02/24/23 07:36 BUN/Creatinine Ratio 10.0 (10-20) 02/24/23 07:36 Glucose 105 mg/dl (70-99(Fasting)) H 02/24/23 07:36 Calcium 8.9 mg/dl (8.6-10.3) 02/24/23 07:36 Magnesium 1.5 mg/dl (1.7-2.4) L 02/24/23 07:36 Total Bilirubin 0.5 mg/dl (0.2-1.0) 02/24/23 07:36 AST 22 U/L (13-39) 02/24/23 07:36 ALT 16 U/L (7-52) 02/24/23 07:36 Alkaline Phosphatase 88 U/L (34-104) 02/24/23 07:36 Troponin I High Sens 5.6 pg/ml (0-14) 02/24/23 07:36 Total Protein 6.5 gm/dl (6.0-8.3) 02/24/23 07:36 Albumin 3.8 gm/dl (3.4-5.0) 02/24/23 07:36 Globulin 2.7 gm/dl (2.5-4.0) 02/24/23 07:36 Albumin/Globulin Ratio 1.4 (0.9-2) 02/24/23 07:36 Lipase 15 U/L (11-82) 02/24/23 07:36 TSH 0.769 uIu/ml (0.300-4.500) 02/24/23 07:36 Urine Color Yellow 02/24/23 Unknown Urine Appearance Clear (Clear) 02/24/23 Unknown Urine pH 5.0 (4.5-7.5) 02/24/23 Unknown Ur Specific Sp[place] 1.023 (1.000-1.030) 02/24/23 Unknown Urine Protein Negative (Negative) 02/24/23 Unknown Urine Glucose (UA) Negative (Negative) 02/24/23 Unknown Urine Ketones 3+ (Negative) H 02/24/23 Unknown Urine Blood Negative (Negative) 02/24/23 Unknown Urine Nitrite Negative (Negative) 02/24/23 Unknown Urine Bilirubin Negative (Negative) 02/24/23 Unknown Urine Urobilinogen Negative (Negative) 02/24/23 Unknown Ur Leukocyte Esterase Negative (Negative) 02/24/23 Unknown SARS-CoV-2 (PCR) POSITIVE (Negative) A* 02/24/23 Unknown Influenza Type A (PCR) Negative (Neg) 02/24/23 Unknown Influenza Type B (PCR) Negative (Neg) 02/24/23 Unknown RSV (RT-PCR) Negative (Neg) 02/24/23 Unknown Impressions Chest X-Ray 02/24/23 07:28 XR chest 1V portable HISTORY: 27 years-old Female SOB acute shortness of breath COMPARISON: None TECHNIQUE: AP view of the chest FINDINGS: Cardiomediastinal and hilar silhouettes are within normal limits. No pneumothorax, pleural effusion or airspace consolidation. The bones appear normal. IMPRESSION: No acute process. ACT 112: Negative or not required by law. The above report was generated using voice recognition software. It may contain grammatical, syntax or spelling errors. Electronically signed by: Moises Toth M.D. 02/24/2023 9:01 AM Venous Doppler Study 02/24/23 10:04 US venous doppler LE BI CLINICAL HISTORY: r/o DVT TECHNIQUE: Bilateral lower extremity real-time compression venous ultrasound with Color Doppler imaging. Utilizing real-time ultrasonic imaging multiple real time high-resolution ultrasonic images with compression and noncompression maneuvers of the deep venous system in addition to color doppler imaging were performed from the common femoral vein through the proximal calf veins. COMPARISON: None available at the time of this dictation. FINDINGS/IMPRESSION: Currently there is normal compressibility of the deep venous system from the common femoral vein through the proximal calf veins. No superficial venous thrombosis is identified. ACT 112: Negative or not required by law. Electronically signed by: Jonas Oakley M.D. 02/24/2023 12:09 PM Ordered Studies 02/24/23 10:04 US venous duplex leg [US venous doppler LE BI] Stat 02/24/23 17:42 CT angio chest PE protocol Stat Hospital Course (1) Tachycardia: (2) Hypotension: (3) 29 weeks gestation of : (4) COVID-19: (5) Depression: Plan Ms. Grimes is a 27 year old female that presents to the ED with heart palpitations and persistent tachycardia that began today. OB was consulted in the ED and NST was performed at bedside and within normal limits per OB Dr. Faulkner. No active evidence for active labor. Patient with persistent tachycardia and borderline hypotensive despite 3 L of fluid resuscitation. Concern for PE with risk factors including COVID-positive and . Risk versus benefit of imaging discussed. Lower extremity ultrasound Doppler performed and negative for DVT. Heart rate continues to be tachycardic after third liter of fluid. Discussion held between ER provider and hospitalist regarding transfer to receive an upgrade in care where high school librarian would be present. Given that she is 29 weeks and as we do not have capability for care for level of gestation. [facility] Villalba and the hospitalist Dr. Sebastian Trevino with regards to possible transfer for further management. Dr. Trevino indicated that they would accept from hospitalist perspective however there were no beds available at this time and suspect that it would be around 24 hours prior to bed availability; discussed internally with Dr. Ramirez and patient will be excepted under our service until bed [place] available [place] [facility] [place] necessary. In the meantime continue normal saline at 100 mL/h, TEDS/SCDS, CBC and BMP in a.m., ECG in a.m. Tachycardia: Hypotension: Dehydration Initial HR 160's ST on ECG, no ectopy 3 LNSB administered in ED continue IV fluids at 100ml/hour BP soft 98/60--> 107/52 LE Doppler US performed and negative for DVT; consider VQ scan if persistent symptoms Check ECHO Given persistent tachycardia, in setting of , COVID infection, may need to consider CTA to rule out PE after discussing risks versus benefits if tachycardia remains persistent Replace electrolytes as needed Consider cardiology evaluation if needed 29 weeks gestation of : Dr. Sy consulted with OB NST done at bedside; within normal limits per OB OB consult for oversight and repeat NST if necessary. [facility]AN OR[facility]INATOR Dr. Villalba and the hospitalist Dr. Sebastian Trevino with regards to possible transfer for further management. Dr. Trevino indicated that they would accept from hospitalist perspective however there were no beds available at this time. Suspect that it would be around 24 hours prior to bed availability. Discussed internally with Dr. Ramirez and patient will be excepted under our service until bed becomes available at [facility] as necessary. COVID-19: Acute uncontrolled no current treatment to be administered due to Saturating well on room air No pneumonia on chest x-ray Conservative management for now Hyponatremia Hypochloremia Hypokalemia Hypomagnesemia Likely due to dehydration, poor oral intake Sodium 135 Potassium 3.3 Magnesium 1.5 Replace potassium and monitor electrolytes Depression: Chronic stable Takes Zoloft; continue Disposition: PCP: Dr. Mead CODE STATUS: Full code VTE prophylaxis: Teds and SCDs for now Given high risk , plan to discussed with [facility] for possible transfer to tertiary care facility. Patient continues to have tachycardia in the 140's with BP ranging 98/60 to 104/54. Discussed with OB Dr. Sy who supported chest CTA with low risk to affecting . Further discussion with patient by Dr. Ramirez who discussed risk vs benefit of Chest CTA. Pt agreeable to diagnostic testing. CTA currently pending. Furthermore, [facility] returned call and provided with accepting physician of Dr. Anand Montano. Should systolic BP remain low, consider life flight for transportation. Currently plan for [facility] ground transportation. Will await Chest CT results. technical program manager and transfer center aware. Patient room # will be 642 at [place]. [place] [facility] to take patient pending pick up driver at 1915. Dr. Ramirez completed transfer paperwork. If CTA results available prior to transfer, will consider starting on anticoagulation. Patient and family agrees to be transferred to tertiary care facility for further management. Total Time Total Time Spent Total Time Spent (In Minutes): 85 minutes Discharge Plan Discharge Items Patient Disposition: Transfer Acute Care Hospital Reason For Visit: COVID+, TACHYCARDIA, HYPOTENSION Discharge Diagnosis: COVID-19 infection 29 weeks gestation of Dehydration Suspected PE Hyponatremia Hypokalemia Hypokalemia Hypomagnesemia Activity: Per Instructions section Exercise/Sports: Wait until after follow-up appointment Non-emergency contact: Primary Care Provider and Channel Installer Call non-emergency contact if: you have any medication questions, your symptoms worsen, your pain is concerning for you and you have a fever Follow-up/Referrals: Ciera Mead, DO [Primary Care Provider] - Diet: Regular Addtl Attending Provider Instructions: Follow-up with Dr. Anand Montano at [facility] for further evaluation and management. Seek immediate medical attention if your symptoms reoccur or worsen Please take all medications as instructed on discharge list below. Please call if you have any questions or problems. You can reach a [facility] hospitalist on duty at [facility] 24 hours a day by calling [phone] Addtl Equipment Mechanic Specialist Provider Instructions: Current Inpatient Medications Acetaminophen (Acetaminophen 500 Mg Tab) 500 mg PO Q4H PRN PRN Reason: Pain or Fever Stop: 03/26/23 17:42 Last Admin: 02/24/23 18:10 Dose: 500 mg Cetirizine HCl (Cetirizine Hcl 10 Mg Tablet) 10 mg PO QAM MC Stop: 03/27/23 08:59 Sodium Chloride (Nss) 1,000 mls @ 100 mls/hr IV .Q10H MC Stop: 02/25/23 09:29 Last Admin: 02/24/23 14:01 Dose: 100 mls/hr Prenat Multivit/Kelliher/Iron/Folic Ac ( Vitamin 1 Tab) 1 tab PO DAILY MC Stop: 03/27/23 08:59 Sertraline HCl (Sertraline Hcl 50 Mg Tablet) 50 mg PO QAM MC Stop: 03/27/23 08:59 Sodium Chloride (Sodium Chloride 0.65% Na Soln 45 Ml ([place])) 2 sprays NA TID PRN PRN Reason: Nasal Congestion Stop: 03/26/23 14:47 Pending Studies at Discharge: Yes Studies:: CTA Stand-Alone Forms: [facility] Skilled Items Patient informed of condition?: Yes DNR: No Discharge Level of Care: Other Communicable Disease: No Discharge Prognosis: Other Lines: Peripheral IV Urinary Catheter: No Medications and DC Order Prescriptions: Continued ondansetron 4 mg tablet,disintegrating 4 mg translingual Q8H PRN (Reason: nausea/vomiting) Vitamin Tablet 1 tab PO DAILY cetirizine [Zyrtec] 10 mg Tablet 10 mg PO QAM sertraline [Zoloft] 50 mg Tablet 50 mg PO QAM Discharge Orders: Discharge Order (Routine); Ordered 02/24/23 Ordered By: Erick Ramirez Admission Data Admit Date/Time: 02/24/23 13:24 Attending Provider: Erick Ramirez Admit Provider: Erick Ramirez Primary Care Provider: Ciera Mead Other Providers: Erick Ramirez; Venu Sy
[2023-02-24] MEDS ORDERED: OPTIRAY 320 125ml IV ONE (18:23)
--- NOTE | 2023-02-24 19:51 | CT Scan Report ---
Exam(s): CTA CHEST IV Amt: 118 ml optiray 320 EXAM: CT Angiography Chest With Intravenous Contrast CLINICAL HISTORY: Reason for exam: PE. TECHNIQUE: Axial computed tomographic angiography images of the chest with intravenous contrast. CTDI is 13.68 mGy and DLP is 404.19 mGy-cm. Automated exposure control was utilized for the study. A dose lowering technique was utilized adhering to the principles of ALARA. MIP reconstructed images were created and reviewed. COMPARISON: No relevant prior studies available. FINDINGS: Pulmonary arteries: Unremarkable. No pulmonary embolism. Aorta: No acute findings. No thoracic aortic aneurysm. Lungs: Unremarkable. No mass. No consolidation. Pleural space: Unremarkable. No significant effusion. No pneumothorax. Heart: Unremarkable. No cardiomegaly. No significant pericardial effusion. No evidence of RV dysfunction. Bones/joints: No acute fracture. No dislocation. Soft tissues: Unremarkable. Lymph nodes: Unremarkable. No enlarged lymph nodes. IMPRESSION: Normal chest CTA. No pulmonary embolism. Electronically signed by: Wyatt Vallejo MD 02/24/23 19:51 PM
[2023-02-25] MEDS ORDERED: CETIRIZINE HCL 10 MG TABLET PO SCH (09:00)
[2023-02-25] MEDS ORDERED: SERTRALINE HCL 50 MG TABLET PO SCH (09:00)
[2023-02-25] MEDS ORDERED: PRENATAL VITAMIN 1 TAB PO SCH (09:00)
== END 2023-02-24 20:11 | disposition short-term general hospital (02) | DRG 831 ==
LOC: ED 07:17 → SUATTDRO 13:24 → EDINP 13:24